=== PATIENT | male | born 1985 | race Caucasian/White ===

== ENCOUNTER 2020-09-10 14:39 | Inpatient (IN) | payer OTHER ==
[~2020-09-10] VITALS: Ht 172.7 cm; Wt 70.2 kg
[2020-09-10 14:50] VITALS: BP 147/100
[2020-09-10 15:15] LABS: ABSOLUTE BASOPHILS 0.1 thou/uL (0.0-0.2); ABSOLUTE EOSINOPHILS 0.1 thou/uL (0.0-0.7); ABSOLUTE LYMPHOCYTES 2.4 thou/uL (0.8-5.3); ABSOLUTE MONOCYTES 0.7 thou/uL (0.0-1.2); ABSOLUTE NEUTROPHILS 5.9 thou/uL (1.6-8.1); BASOPHILS 0.8 %; EOSINOPHILS 1.5 %; HEMATOCRIT 50.7 % (42.0-52.0); HEMOGLOBIN 17.2 gm/dL (14.0-18.0); LYMPHOCYTES 25.8 %; MCV 111.7 fL (80.0-100.0); MONOCYTES 7.9 %; MPV 8.7 fl. (7.2-11.1); NUCLEATED RBCS 0 /100WBC; PLATELET COUNT* 164 thou/uL (150-400); RBC 4.54 mil/uL (4.50-6.00); RDW-CV 14.3 % (10.5-14.5); WBC 9.2 thou/uL (4.0-11.0)
[2020-09-10 15:24] LABS: CALCIUM 9.1 mg/dL (8.5-10.1); CREATININE 0.8 mg/dL (0.6-1.3)
[2020-09-10 15:26] LABS: POTASSIUM 2.9 mmol/L (3.5-5.1)
[2020-09-10 15:29] LABS: ALBUMIN 3.7 g/dL (3.4-5.0); TOTAL BILIRUBIN 0.7 mg/dL (<0.1-1.0); TOTAL PROTEIN 7.7 g/dL (6.4-8.2)
[2020-09-10 17:35] LABS: URINE BILIRUBIN NEGATIVE (Negative); URINE BLOOD NEGATIVE (Negative); URINE CLARITY CLEAR; URINE COLOR YELLOW; URINE GLUCOSE-RANDOM NEGATIVE (Negative); URINE KETONES NEGATIVE (Negative); URINE LEUKOCYTES-REFLEX NEGATIVE (Negative); URINE NITRITE-REFLEX NEGATIVE (Negative); URINE PROTEIN NEGATIVE (Negative); URINE UROBILINOGEN 0.2 E.U./dl (0.2-1.0)
[2020-09-10 17:44] LABS: AMP/METHAMP Negative (Negative); BARBITURATES Negative (Negative); BENZODIAZEPINES Negative (Negative); COCAINE Negative (Negative); METHADONE Negative (Negative); OPIATES Negative (Negative); PCP Negative (Negative); THC POSITIVE (Negative)
[2020-09-10 19:12] LABS: MAGNESIUM 1.8 mg/dL (1.8-2.4); PHOSPHORUS* 3.6 mg/dL (2.5-4.9)
[2020-09-10 20:15] VITALS: BP 126/76
[2020-09-10 20:45] LABS: CREATININE 0.8 mg/dL (0.6-1.3); POTASSIUM 3.3 mmol/L (3.5-5.1)
[2020-09-10 23:44] VITALS: BP 132/87
[2020-09-11 03:27] VITALS: BP 134/85
[2020-09-11 03:57] LABS: HEMATOCRIT 46.4 % (42.0-52.0); HEMOGLOBIN 15.6 gm/dL (14.0-18.0); MCH 37.5 pg (26.0-34.0); MCHC 33.6 g/dL (28.0-37.0); MCV 111.8 fL (80.0-100.0); MPV 9.2 fl. (7.2-11.1); RBC 4.15 mil/uL (4.50-6.00); RDW-CV 14.1 % (10.5-14.5); WBC 9.5 thou/uL (4.0-11.0)
[2020-09-11 04:18] LABS: CALCIUM 7.8 mg/dL (8.5-10.1); CREATININE 0.8 mg/dL (0.6-1.3); POTASSIUM 3.7 mmol/L (3.5-5.1)
[2020-09-11 07:45] VITALS: BP 133/90
[2020-09-11 12:00] VITALS: BP 136/86
[2020-09-11 16:00] VITALS: BP 132/89
[2020-09-11 20:00] VITALS: BP 138/91
[2020-09-12 00:20] VITALS: BP 145/67
[2020-09-12 04:18] VITALS: BP 151/73
[2020-09-12 04:39] LABS: HEMATOCRIT 44.5 % (42.0-52.0); HEMOGLOBIN 14.9 gm/dL (14.0-18.0); MCH 37.3 pg (26.0-34.0); MCHC 33.5 g/dL (28.0-37.0); MCV 111.4 fL (80.0-100.0); RBC 3.99 mil/uL (4.50-6.00); RDW-CV 14.1 % (10.5-14.5); WBC 11.9 thou/uL (4.0-11.0)
[2020-09-12 05:07] LABS: CALCIUM 7.7 mg/dL (8.5-10.1); CREATININE 0.8 mg/dL (0.6-1.3); POTASSIUM 3.1 mmol/L (3.5-5.1)
[2020-09-12 08:00] VITALS: BP 126/93
[2020-09-12 12:00] VITALS: BP 128/66
[2020-09-12 16:00] VITALS: BP 130/88
[2020-09-12 20:00] VITALS: BP 133/88
[2020-09-13] VITALS: BP 121/80
[2020-09-13 04:04] LABS: CALCIUM 7.8 mg/dL (8.5-10.1); CREATININE 0.7 mg/dL (0.6-1.3); POTASSIUM 3.5 mmol/L (3.5-5.1)
[2020-09-13 04:09] LABS: HEMOGLOBIN 13.4 gm/dL (14.0-18.0); MCHC 34.3 g/dL (28.0-37.0); MCV 110.8 fL (80.0-100.0); MPV 9.5 fl. (7.2-11.1); RBC 3.52 mil/uL (4.50-6.00); RDW-CV 13.9 % (10.5-14.5); WBC 10.4 thou/uL (4.0-11.0)
[2020-09-13 04:41] VITALS: BP 106/72
[2020-09-13 08:00] VITALS: BP 129/77
[2020-09-13] MEDS ORDERED: PERCOCET 5-3251 EACH PO (10:43)
[2020-09-13 12:00] VITALS: BP 102/5
[2020-09-13 14:57] VITALS: BP 102/5
== END 2020-09-13 15:50 | disposition home or self-care (01) | DRG 440 ==
LOC: M.ERS 14:39 → M.TBA-ER 18:26 → M.2W 18:26
PROVIDERS: Physician Assistant; ADMIT Internal Medicine; ATTEND Internal Medicine
DX: K85.20 Alcohol induced acute pancreatitis without necrosis or infection (principal); F17.210 Nicotine dependence, cigarettes, uncomplicated; F10.10 Alcohol abuse, uncomplicated; Y90.9 Presence of alcohol in blood, level not specified; E87.6 Hypokalemia; Z20.822 Contact with and (suspected) exposure to COVID-19